=== PATIENT | female | born 1955 | race American Indian/Alaskan Native ===

== ENCOUNTER 2018-09-16 11:32 | Emergency (ER) | payer SELFPAY ==
[2018-09-16] MEDS ORDERED: ADRENALINE P/F SUB-Q ONE (11:34)
[2018-09-16] MEDS ORDERED: SOLU-Medrol IV STA (11:36)
[2018-09-16] MEDS ORDERED: PEPCID IV STA (11:36)
[2018-09-16] MEDS ORDERED: SOLU-Medrol ONE (11:36)
[2018-09-16] MEDS ORDERED: BENADRYL IV ONE (11:36)
[2018-09-16] MEDS ORDERED: PEPCID IV ONE (11:37)
[2018-09-16] MEDS ORDERED: BENADRYL ONE (11:37)
--- NOTE | 2018-09-16 11:42 | Emergency Department Report ---
ED Allergic Reaction HPI - General Stated complaint: STUNG BY BEE Time Seen by Provider: 09/16/18 11:34 Source: patient Limitations: No Limitations - History of Present Illness Initial Comments: Delfina is a 63-year-old with a history of hypertension who was stung by several bees while raking in her backyard. She came to the ER of her prior at all. She has headache lightheadedness and sensation of throat swelling. No previous history of anaphylaxis to food or insect stings. Her blood pressure has been well controlled. Having trouble talking MD Complaint: allergic reaction -: Sudden Exposure: insect bite Symptoms: difficulty swallowing, nausea Severity: severe Treatment Prior to Arrival: none Previous Allergy History: none - Related Data Previous Rx's Medication Instructions Recorded Last Taken Type EPINEPHrine [Epipen] 0.3 mg IJ ONCE PRN #1 auto.injct 09/16/18 Unknown Rx Famotidine [Pepcid] 20 mg PO BID 3 Days #6 tablet 09/16/18 Unknown Rx Prednisone [predniSONE 5 mg (6-Day 5 mg PO .TAPER #1 tab.ds.pk 09/16/18 Unknown Rx Pack, 21 Tabs)] diphenhydrAMINE [Benadryl CAP] 25 mg PO Q6HR 3 Days #12 capsule 09/16/18 Unknown Rx Allergies Allergy/AdvReac Type Severity Reaction Status Date / Time bee venom protein (honey bee) Allergy Unknown Verified 09/16/18 11:43 ED Review of Systems ROS: Stated complaint: STUNG BY BEE Other details as noted in HPI Comment: All other systems reviewed and negative Constitutional: malaise. denies: fever Gastrointestinal: nausea Skin: denies: rash, lesions ED Past Medical Hx - Past Medical History Previous Medical History?: Yes Hx Hypertension: Yes - Social History Smoking Status: Never Smoker Substance Use Type: None Other Social History: Delfina is a personal friend and former colleague. 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 - Medications Home Medications: Home Medications Medication Instructions Recorded Confirmed Last Taken Type EPINEPHrine [Epipen] 0.3 mg IJ ONCE PRN #1 auto.injct 09/16/18 Unknown Rx Famotidine [Pepcid] 20 mg PO BID 3 Days #6 tablet 09/16/18 Unknown Rx Prednisone [predniSONE 5 mg (6-Day 5 mg PO .TAPER #1 tab.ds.pk 09/16/18 Unknown Rx Pack, 21 Tabs)] diphenhydrAMINE [Benadryl CAP] 25 mg PO Q6HR 3 Days #12 capsule 09/16/18 Unknown Rx ED Physical Exam - General General appearance: alert, in no apparent distress, other (anxious talking normally tearful and obviously upset and scared) - Head Head exam: Present: atraumatic, normocephalic - Eye Eye exam: Present: normal appearance - ENT ENT exam: Present: mucous membranes moist - Neck Neck exam: Present: normal inspection, full ROM - Respiratory Respiratory exam: Present: normal lung sounds bilaterally. Absent: respiratory distress, wheezes, rales, rhonchi - Cardiovascular Cardiovascular Exam: Present: regular rate, normal rhythm, normal heart sounds. Absent: systolic murmur, diastolic murmur, rubs, gallop - GI/Abdominal GI/Abdominal exam: Present: soft, normal bowel sounds. Absent: distended, tenderness, guarding, rebound - Extremities Exam Extremities exam: Present: normal inspection - Back Exam Back exam: Present: normal inspection - Neurological Exam Neurological exam: Present: alert, oriented X3 - Psychiatric Psychiatric exam: Present: normal affect, normal mood - Skin Skin exam: Present: warm, dry, intact, normal color, rash, urticaria (upper back and abdomen sparse in number, 5 lesions clustered at upper back) ED Course Vital Signs 09/16/18 11:44 Temperature 98.3 F Pulse Rate 87 Respiratory 16 Rate Blood Pressure 177/79 O2 Sat by Pulse 99 Oximetry ED Medical Decision Making - Medical Decision Making Anaphylaxis to insect sting, treated with 0.2 mg of epinephrine, IV famotidine, IV methylprednisolone, IV diphenhydramine. Delfina informed me that she takes atenolol. Glucagon was administered. After 2 doses of glucagon, voice normalized. Throat swelling resolved. I have discharged Delfina with prescriptions for famotidine, EpiPen, prednisone taper in Hydramine. I have asked her to speak with her PCP Dr. Gamble for referral to bike assembler. Delfina did not have tachycardia or hypotension while in the ED. Blood pressure improved to 154/72 without intervention. Critical care attestation.: If time is entered above; I have spent that time in minutes in the direct care of this critically ill patient, excluding procedure time. ED Disposition Clinical Impression: Anaphylaxis due to insect venom Disposition: DC-01 TO HOME OR SELFCARE Is pt being admited?: No Does the pt Need Aspirin: No Condition: Stable Instructions: Insect Bite or Sting (ED), Anaphylaxis (ED) Additional Instructions: Please call Dr. Gamble for referral to an bike assembler. Prescriptions: diphenhydrAMINE [Benadryl CAP] 25 mg PO Q6HR 3 Days #12 capsule EPINEPHrine [Epipen] 0.3 mg IJ ONCE PRN #1 auto.injct PRN Reason: severe allergic reason Famotidine [Pepcid] 20 mg PO BID 3 Days #6 tablet Prednisone [predniSONE 5 mg (6-Day Pack, 21 Tabs)] 5 mg PO .TAPER #1 tab.ds.pk
[2018-09-16] MEDS ORDERED: GLUCAGEN IV ONE ×2 (11:46→12:17)
[2018-09-16 13:43] VITALS: BP 154/74
== END 2018-09-16 13:43 | disposition home or self-care (01) ==
LOC: ED 11:32
DX: T63.441A Toxic effect of venom of bees, accidental (unintentional), initial encounter (principal); T78.2XXA Anaphylactic shock, unspecified, initial encounter; I10 Essential (primary) hypertension; Z79.899 Other long term (current) drug therapy; Z91.030 Bee allergy status; X58.XXXA Exposure to other specified factors, initial encounter
CPT/HCPCS: 96372; 96374; 96375; 99283; J0171; J1200; J1610; J2930